=== PATIENT | female | born 1990 | race Asian ===

== ENCOUNTER 2021-11-02 00:32 | Emergency (ER) | payer BC ==
[~2021-11-02] VITALS: Ht 167.6 cm; Wt 54.4 kg
--- NOTE | 2021-11-02 01:16 | NUR ---
BIBS. TO ER BED 6. AAOX4. NOT IN RESP DISTRESS. AMBULATORY. CAME IN FOR DIFFUSED ABD PAIN W/ WATERRY DIARRHEA FOR THE PAST 2 DAYS. PT ALSO REPORTS THAT SHE VOMMITS WHEN EVER SHE EATS OR DRINK. PAIN IS RATED 8/10 SHARP STABBING. URINE COLLECTED AND SENT TO LAB. AT BEDSIDE FOR EVAL.
[2021-11-02] MEDS ORDERED: ONDANSETRON HCL/PF 4 MG/2 ML VIAL ONE ×2 (01:23→03:36)
[2021-11-02] MEDS ORDERED: MORPHINE SULFATE INJ 4 MG/ML DISP.SYRIN ONE (01:23)
[2021-11-02] MEDS ORDERED: ONDANSETRON HCL/PF 4 MG/2 ML VIAL IVP ONE (01:30)
[2021-11-02] MEDS ORDERED: IV NS 0.9% 1,000 ML BAG IV ONE (01:30)
[2021-11-02] MEDS ORDERED: MORPHINE SULFATE INJ 2 MG/ML DISP.SYRIN IV ONE (01:30)
[2021-11-02 01:55] LABS: BILIRUBIN,URINE SMALL (NEGATIVE); COLOR,URINE YELLOW (YELLOW); LEUKOCYTE ESTERASE ,URINE NEGATIVE (NEGATIVE); NITRITE, URINE NEGATIVE (NEGATIVE); PROTEIN,URINE TRACE mg/dl (NEGATIVE); UGLUCOSE NEGATIVE (NEGATIVE); UROBILINOGEN,URINE 0.2 EU/dL (0.2)
[2021-11-02 02:00] LABS: BASOPHILS % (AUTO) 0.2 % (0.0-2.0); EOSINOPHILS % (AUTO) 0.7 % (0.0-6.0); HEMATOCRIT 39 % (33-45); HEMOGLOBIN 13.1 g/dL (11.5-14.8); MEAN CORPUSCULAR HGB CONC 34 g/dl (31.0-36.0); MEAN CORPUSCULAR VOLUME 96 fL (82-100); MONOCYTES # (AUTO) 0.5 K/uL (0.1-1.30); MONOCYTES % (AUTO) 7.2 % (2.0-12.0); NEUTROPHILS # (AUTO) 5.4 K/uL (1.8-8.9); NEUTROPHILS % (AUTO) 76.9 % (43.0-81.0); PLATELET COUNT (AUTO) 237 K/uL (150-450); RED BLOOD CELL COUNT(AUTO) 4.05 MIL/uL (4.0-5.2)
[2021-11-02 02:04] LABS: BACTERIA,URINE Few /HPF (None Seen); MUCUS,URINE Moderate /LPF (None Seen); RBC,URINE 0-2 /HPF (0-2); SQUAMOUS EPITHELIAL CELL,UR Few /HPF (None Seen); WBC,URINE 0-2 /HPF (0-3)
[2021-11-02 02:16] LABS: CALCIUM, SERUM 8.6 mg/dL (8.5-10.1); CREATININE 0.6 mg/dL (0.6-1.3); POTASSIUM 3.5 mmol/L (3.5-5.1)
[2021-11-02 02:21] LABS: ALBUMIN 3.6 g/dL (3.4-5.0); BILIRUBIN,DIRECT 0.1 mg/dL (0.0-0.2); BILIRUBIN,TOTAL 0.3 mg/dL (0.2-1.0); TOTAL PROTEIN, SERUM 7.4 g/dL (6.4-8.2)
--- NOTE | 2021-11-02 02:50 | NUR ---
BACK FROM CT
[2021-11-02] MEDS ORDERED: ONDANSETRON HCL/PF 4 MG/2 ML VIAL IV ONE (03:30)
[2021-11-02] MEDS ORDERED: KETOROLAC TROMETHAMINE INJ 30 MG/ML VIAL IV ONE (03:30)
[2021-11-02] MEDS ORDERED: KETOROLAC TROMETHAMINE INJ 30 MG/ML VIAL ONE (03:36)
[2021-11-02] MEDS ORDERED: DICY10CA37 PO (04:49)
[2021-11-02] MEDS ORDERED: ONDA4TAB5 PO (04:49)
--- NOTE | 2021-11-02 04:57 | NUR ---
Patient discharged to home in stable condition. Written and verbal after care instructions given. Patient verbalizes understanding of instruction. IV line removed and PT ambulatory with steady gait.
[2021-11-02 04:58] VITALS: BP 105/68
== END 2021-11-02 04:58 | disposition home or self-care (01) ==
LOC: ER 00:54
DX: K52.9 Noninfective gastroenteritis and colitis, unspecified (principal); R10.84 Generalized abdominal pain; Z60.2 Problems related to living alone; Z79.899 Other long term (current) drug therapy
CPT/HCPCS: 36415; 74176; 80048; 80076; 81001; 83690; 84703; 85025; 85730; 96361; 96374; 96375; 96376; 99285; J1885; J2270; J2405 ×2; J7030